=== PATIENT | male | born 1945 | race Caucasian/White ===

== ENCOUNTER 2018-07-01 01:11 | Outpatient (CLI) | payer MEDICARE, OTHER, SELFPAY ==
--- NOTE | 2018-07-01 13:30 | MERGE_ITS ---
*[facility]* *[facility]* [address] [place] [address] Date of study: 07/01/2018 Transthoracic Echocardiography M-mode, complete 2D, complete spectral Doppler, and color Doppler *STUDY CONCLUSIONS* Summary: 1. Left ventricle: The cavity size was normal. Wall thickness was increased in a pattern of mild LVH. Systolic function was hyperdynamic. The estimated ejection fraction was 65-70%. There was very mild dynamic obstruction at rest in the outflow tract, withpeak gradient of 7.8mm Hg; no change with Valsalva. Wall motion was normal; there were no regional wall motion abnormalities. 2. Aortic valve: Trileaflet; normal thickness leaflets. 3. Ascending aorta: The ascending aorta was mildly to moderately dilated. 4. Aorta: Ascending aortic diameter: 4.1cm (S). 5. Right ventricle: The cavity size was normal. Wall thickness was normal. Systolic function was normal. *PATIENT PRESENTATION* Height: 177.8cm ((70in) ) S/D Pressure: 141 / 82 Weight: 117.9kg ((259.5lb) ) BSA: 2.46m^2 Test start time: 01:50 PM. Test stop time: 02:45 PM. PERFORMING Unknown PERFORMING [facility] ORDERING Vernon Culver REFERRING Vernon Culver [employer] Aparna Katz, RT (R)(CT), [facility] *PROCEDURE DATA* Procedure information: The patient was identified by two identifiers. This study was interpreted by [facility]. Pertinent images and digital data are archived for permanent storage and are available for subsequent review. No prior study was available for comparison. Study status: Routine. Transthoracic echocardiography. M-mode, complete 2D, complete spectral Doppler, and color Doppler. A Transthoracic Echocardiogram was performed. Scanning was performed from the parasternal, apical, subcostal, and suprasternal notch acoustic windows. Images were obtained using an [id number]. cardiac ultrasound machine. Image quality was fair. Study completion: The patient tolerated the procedure well. There were no complications. History: PMH: Bilateral leg edema, SOB, JEISON. *CARDIAC ANATOMY* Left ventricle: The cavity size was normal. Wall thickness was increased in a pattern of mild LVH. Systolic function was hyperdynamic. The estimated ejection fraction was 65-70%. There was very mild dynamic obstruction at rest in the outflow tract, withpeak gradient of 7.8mm Hg; no change with Valsalva. Wall motion was normal; there were no regional wall motion abnormalities. Diastolic parameters were normal for age. Aortic valve: Trileaflet; normal thickness leaflets. Mobility was not restricted. Doppler: Transvalvular velocity was within the normal range. There was no stenosis. There was no significant regurgitation. VTI ratio of LVOT to aortic valve: 0.68. Valve area (VTI): 2.4cm^2. Indexed valve area (VTI): 1cm^2/m^2. Peak velocity ratio of LVOT to aortic valve: 0.62. Valve area (Vmax): 2.3cm^2. Indexed valve area (Vmax): 0.9cm^2/m^2. Mean velocity ratio of LVOT to aortic valve: 0.71. Valve area (Vmean): 2.6cm^2. Indexed valve area (Vmean): 1cm^2/m^2. Mean gradient (S): 8.4mm Hg. Peak gradient (S): 15.9mm Hg. Aorta: Aortic root: The aortic root was at upper normal limits. Ascending aorta: The ascending aorta was mildly to moderately dilated. Mitral valve: Structurally normal valve. Mobility was not restricted. Doppler: Transvalvular velocity was within the normal range. There was no evidence for stenosis. There was trivial regurgitation. Valve area by pressure half-time: 3.2cm^2. Indexed valve area by pressure half-time: 1.3cm^2/m^2. Peak gradient (D): 2mm Hg. Left atrium: The atrium was normal in size. Right ventricle: The cavity size was normal. Wall thickness was normal. Systolic function was normal. Pulmonic valve: Structurally normal valve. Doppler: Transvalvular velocity was within the normal range. There was no evidence for stenosis. There was no significant regurgitation. Peak gradient (S): 6.9mm Hg. Tricuspid valve: Structurally normal valve. Doppler: Transvalvular velocity was within the normal range. There was no evidence for stenosis. There was trivial regurgitation. Pulmonary artery: Systolic pressure could not be accurately estimated. Right atrium: The atrium was normal in size. Pericardium: There was no pericardial effusion. Systemic veins: Inferior vena cava: Well visualized. The vessel was patent and normal in size. The respirophasic diameter changes were in the normal range (greater than or equal to 50%). Baseline ECG: Bradycardia. Measurements Left ventricle Value Reference LV ID, ED, PLAX 5.5 cm 3.5 - 6.0 LV ID, ES, PLAX 3.4 cm 2.1 - 4.0 LV PW thickness, ED, PLAX 1.4 cm LV end-diastolic volume, 1-p A2C 103 ml LV ejection fraction, 1-p A2C 70 % LV end-diastolic volume, 1-p A4C 144 ml LV ejection fraction, 1-p A4C 78 % LV e', lateral 0.073 m/sec LV E/e', lateral 10 LV e', medial 0.061 m/sec LV E/e', medial 12 LV e', average 0.067 m/sec LV E/e', average 11 Ventricular septum Value Reference IVS thickness, ED, PLAX 1.3 cm LVOT Value Reference LVOT ID, A-P 2.1 cm LVOT area 3.6 cm^2 LVOT peak velocity, S 1.24 m/sec LVOT mean velocity, S 0.97 m/sec LVOT VTI, S 29.1 cm LVOT peak gradient, S 6.1 mm Hg LVOT mean gradient, S 4.1 mm Hg Stroke volume (SV), LVOT DP 105 ml Stroke index (SV/bsa), LVOT DP 43 ml/m^2 Aortic valve Value Reference Aortic valve peak velocity, S 2 m/sec Aortic valve mean velocity, S 1.37 m/sec Aortic valve VTI, S 43.0 cm Aortic mean gradient, S 8.4 mm Hg Aortic peak gradient, S 15.9 mm Hg VTI ratio, LVOT/AV 0.68 Aortic valve area, VTI 2.4 cm^2 Velocity ratio, peak, LVOT/AV 0.62 Aortic valve area, peak velocity 2.3 cm^2 Velocity ratio, mean, LVOT/AV 0.71 Aortic valve area, mean velocity 2.6 cm^2 Aortic valve area/bsa, mean velocity 1 cm^2/m^2 Aorta Value Reference Aortic root ID, ED 3.7 cm Ascending aorta ID, A-P, S 4.1 cm RVOT Value Reference RVOT VTI, S 19.3 cm Left atrium Value Reference LA ID, A-P, ES 3.4 cm LA ID/bsa, A-P 1.4 cm/m^2 <=2.2 LA area, ES, A4C 22.8 cm^2 8.8 - 23.4 LA area, ES, A2C 20 cm^2 LA volume/bsa, ES, 1-p A4C 32 ml/m^2 LA volume, ES, 2-p 60 ml LA volume/bsa, ES, 2-p 24 ml/m^2 LA/aortic root ratio 0.9 Mitral valve Value Reference Mitral E-wave peak velocity 0.72 m/sec Mitral A-wave peak velocity 0.8 m/sec Mitral deceleration time (H) 235 ms 150 - 230 Mitral pressure half-time 68 ms Mitral peak gradient, D 2 mm Hg Mitral E/A ratio, peak 0.89 Mitral valve area, PHT, DP 3.2 cm^2 Tricuspid valve Value Reference Tricuspid regurg peak velocity 3 m/sec Tricuspid peak RV-RA gradient 35.6 mm Hg Right atrium Value Reference RA area, ES, A4C 17.4 cm^2 8.3 - 19.5 Pulmonic valve Value Reference Pulmonic peak gradient, S 6.9 mm Hg Legend: (L) and (H) miguelangel values outside specified reference range. I have personally reviewed the images and have reviewed and edited the reported findings. Electronically signed by Yuval Ferreira 07/02/2018 07:37
== END 2018-07-01 01:31 ==
PROVIDERS: PCP Specialist/Technologist Athletic Trainer; Visit Provider Specialist/Technologist Athletic Trainer
DX: R06.02 Shortness of breath (principal); R60.0 Localized edema; I51.7 Cardiomegaly; G47.33 Obstructive sleep apnea (adult) (pediatric)
CPT/HCPCS: 93306

== ENCOUNTER 2018-08-10 12:48 | Outpatient (REF) | payer MEDICARE, SELFPAY ==
[2018-08-10 22:12] LABS: Abs Immature Grans 0.02 k/cumm (0.0-0.09); Absolute Basophil Count 0.03 k/cumm (0.0-0.2); Absolute Eosinophil Count 0.29 k/cumm (0.0-0.7); Absolute Lymphocyte Count 1.47 k/cumm (1.2-3.4); Absolute Monocyte Count 0.63 k/cumm (0.11-0.7); Basophils % 0.5; Eosinophils % 4.6; HCT 41.7 % (40.0-50.0); HGB 13.7 g/dL (13.5-17.5); Immature Grans % 0.3; Lymphocytes % 23.2; Mean Corp. HGB Concentration 32.9 g/dL (32.0-36.0); Mean Corpuscular Hemoglobin 30.1 pg (27.0-33.0); Mean Corpuscular Volume 91.6 fL (80-95); Mean Platelet Volume 11.4 fL (8.0-11.0); Monocytes % 9.9; Neutrophils % 61.5; Platelet Count 202 x1000/uL (130-400); RBC 4.55 m/cumm (4.50-6.00); RBC Distribution Width 13.8 % (11.8-14.1); White Blood Cell Count 6.34 k/cumm (4.4-10.8)
[2018-08-10 22:57] LABS: BUN 19 mg/dL (7-18); Calcium 9.5 mg/dL (8.5-10.1); Chloride 105 mmol/L (98-107); Cholesterol 139 mg/dL (50-200); Estimated GFR 54.11 (mL/min/1.73m2); Glucose 90 mg/dL (70-100); HDL Cholesterol 36 mg/dL (40-60); LDL CHOLESTEROL 92 mg/dL (<100); Potassium 4.5 mmol/L (3.5-5.1); Sodium 140 mmol/L (136-145); Triglyceride 86 mg/dL (30-150)
== END 2018-08-10 13:08 ==
LOC: NCHCN 12:48
PROVIDERS: PCP Specialist/Technologist Athletic Trainer; Visit Provider Specialist/Technologist Athletic Trainer
DX: R73.03 Prediabetes (principal); I10 Essential (primary) hypertension
CPT/HCPCS: 80048; 80061; 83721; 85025

== ENCOUNTER 2019-03-01 12:23 | Outpatient (REF) | payer MEDICARE, SELFPAY ==
[2019-03-01 21:24] LABS: Anion Gap 11.1 mmol/L (3-11); BUN 18 mg/dL (7-18); CO2 25.9 mmol/L (21.0-32.0); CREATININE 1.16 mg/dL (0.70-1.30); Chloride 105 mmol/L (98-107); Glucose 100 mg/dL (70-100); Potassium 4.3 mmol/L (3.5-5.1); Sodium 142 mmol/L (136-145)
== END 2019-03-01 12:43 ==
LOC: NCHCN 12:23
PROVIDERS: PCP Specialist/Technologist Athletic Trainer; Visit Provider Specialist/Technologist Athletic Trainer
DX: I10 Essential (primary) hypertension (principal)
CPT/HCPCS: 80048

== ENCOUNTER 2019-07-03 01:28 | Emergency (ER) | payer MEDICARE, OTHER, SELFPAY ==
[2019-07-03] VITALS (36 sets, daily range): BP systolic 122–175; BP diastolic 74–94; PULSE 55–76; RESP 15–28; TEMP 36.3; O2SAT 87–98
[2019-07-03] MEDS: Normal Saline 1,000 ML 1000 ML IV ×2 (01:30→03:55)
--- NOTE | 2019-07-03 01:55 | W.ED.GENAD ---
Discharge Plan Disposition Patient Disposition: HOME Condition: Good Discharge Details Chief Complaint: FlankPain Clinical Impression: Acute left flank pain, Acute dehydration Primary Care Provider: Vernon Culver ED Provider: Jose Hawk Home Meds and New Rx's Prescriptions: No Action triamcinolone acetonide 80 GM ointment 0 Topical DAILY Qty: 80 RF: 3 hydrocortisone 30 GM cream with perineal applicator 0 RC BID Qty: 30 RF: 3 albuterol sulfate [ProAir HFA] 8.5 GM HFA aerosol inhaler 2 puff Inhalation Q6H PRN Qty: 1 RF: 4 magnesium oxide 500 MG capsule 500 mg PO DAILY RF: 0 Discharge Instructions Instructions: Dehydration (ED), Flank Pain (ED) Additional Instructions: At this time the imaging studies and her work-up show no evidence of significant cardiac abnormality, or abdominal abnormality. You are slightly dehydrated. We recommend continue fluid intake at home, at least 10 to 12 cups of water per day for the next few days. Please take Tylenol and Motrin as needed for pain. If you notice any worsening of your symptoms, or any new symptoms such as vomiting, diarrhea, fever, chills, shortness of breath, chest pain, numbness, weakness, or fainting , please return immediately to the emergency department for reevaluation. Please follow up with your primary care provider as soon as possible for reassessment and reevaluation. As always, it was a pleasure participating in your medical care today. Referrals: Vernon Culver [Primary Care Provider] - Medical Decision Making This is a pleasant 74-year-old male with no significant past medical history who presents today for evaluation of left-sided flank pain that began a few hours ago. Does not appear to be exertional, no radiation to the back or groin. He denies any urinary symptoms. He denies any nausea vomiting or diarrhea. He denies any chest pain or shortness of breath chest heaviness or chest tightness. He denies any previous episodes like this. Physical exam demonstrates stable vital signs, no significant reproducible abdominal pain on exam. Signs and symptoms are atypical, but differential includes atypical cardiac etiology, kidney stone, UTI or pyelonephritis. We will treat the patient's pain, get a CT scan of the abdomen, evaluate for cardiac etiology and reassess. 3:54 AM Patient's laboratory work-up is returned relatively benign, no white count, no left shift, electrolytes normal, creatinine and GFR are near baseline. Initial troponin negative, CT scan of the abdomen and pelvis demonstrates evidence of a small fat-containing left inguinal hernia, but no evidence of kidney stone, or other abnormality. CT scan per virtual radiology of the chest demonstrates no evidence of pulmonary embolism or acute process. Patient's pain is improved with narcotics but not resolved. I am uncertain as to the exact etiology of his symptoms but there appears to be no evidence of an acute life-threatening process. Especially in conjunction with notably unremarkable laboratory imaging work-up. We are still pending serial troponins. We are pending urinalysis. 5:12 AM Patient's delta troponin and repeat EKG are unremarkable and unchanged. Patient's pain is notably improved at this time. He still has a mild aching in his left lower ribs/left upper quadrant area. CT scan of the abdomen and CT angios of the chest is negative for significant acute process. He does have a left inguinal hernia, however multiple reassessments of this area including palpation demonstrate no evidence of tenderness, or pain whatsoever. No significant bulge. It appears completely reducible. The patient is also very clear that this is not the location of his pain whatsoever. I doubt that this is referred pain either. With a notably unremarkable laboratory work-up, negative serial troponins, negative imaging studies, I am uncertain as to the exact etiology of his pain. Urinalysis is negative for any evidence of infection or blood. It appears that at this time there is no clinical evidence of an acute surgical abdomen, or life-threatening etiology in the abdomen or chest at this time. With notable improvement of his pain in the otherwise benign work-up I did discuss with the patient potential further observation versus discharge and at this time patient states that he feels well and would like to go home. There may be a component of a sprain, muscle spasm.. However the patient signs and symptoms at this time are clinically inconsistent with ACS, massive PE, dissection, AAA, acute surgical abdominal pathology, life-threatening infection. We discussed red flags which to return, symptomatology for which would merit prompt reassessment, as well as the importance of close follow-up with his primary care provider. I have extensively reviewed the treatment plan and discharge instructions with the patient and their family. I have addressed all patient concerns at this time. The patient and family was made aware of what symptoms to monitor for that would warrant a return to the emergency department. Discussed the plan with the patient and family, they demonstrate verbal understanding and agreement with our assessment and plan at this time. EKG 1: 34 Rate 76, intervals normal, sinus rhythm, nonspecific less than [address] depression in V3 and V4. No significant T wave inversions, there is some atypical artifact noted in the prolonged lead II, however appears to be normal sinus rhythm throughout otherwise. No significant Q waves. No evidence of STEMI. Review of EKG from 04/23/[address] changes. 5:08 AM Rate 59, NJ 210, QTc 422, sinus bradycardia, no significant ST elevations or depressions, no significant T wave inversions, no evidence of STEMI. Nonspecific less than 1 mm depression in V4. Unchanged from prior EKGs from ton and 2015. FINDINGS: Lungs: Unremarkable. No consolidation. Pleural space: Unremarkable. No evidence of pneumothorax. Heart/Mediastinum: Unremarkable. Heart size within normal limits for technique. Bones/joints: Unremarkable. IMPRESSION: No acute findings. Thank you for allowing us to participate in the care of your patient. Dictated and Authenticated by: Terrell Purcell MD 07/03/2019 2:12 AM Eastern Time ([place] & [place]) FINDINGS: Pulmonary arteries: Unremarkable. No evidence of pulmonary emboli. Aorta: Unremarkable. No aortic aneurysm. No aortic dissection. Lungs: Small amount of dependent atelectasis. Pleural space: Unremarkable. No pneumothorax. No pleural effusion. Heart: Unremarkable. No pericardial effusion. No obvious heart strain. Lymph nodes: Unremarkable. No enlarged lymph nodes. Bones/joints: Unremarkable. No acute fracture. Soft tissues: Unremarkable. IMPRESSION: Small amount of dependent atelectasis. Thank you for allowing us to participate in the care of your patient. FINDINGS: Liver: No suspicious lesions. Gallbladder and bile ducts: Cholecystectomy. Pancreas: Unremarkable. Spleen: No suspicious lesions. Adrenals: No suspicious nodule. Kidneys and ureters: No hydro. No suspicious lesions. Stomach and bowel: No inflammed or dilated loops. Appendix: No evidence of appendicitis. Intraperitoneal space: No free air. No significant fluid collection. Vasculature: Unremarkable. Lymph nodes: Unremarkable. Bladder: Unremarkable as visualized. Reproductive: Unremarkable as visualized. Bones/joints: Unremarkable. No acute fracture. Soft tissues: Small fat-containing left inguinal hernia. IMPRESSION: Small fat-containing left inguinal hernia. Thank you for allowing us to participate in the care of your patient. Dictated and Authenticated by: Terrell Purcell MD 07/03/2019 2:50 AM Eastern Time ([place] & [place]) HPI General Date/Time Provider Initiated Documentation: 07/03/19 01:30. HPI Narrative: This is a 74-year-old male with a past medical history of reactive airway disease no other significant medical problems who presents today for evaluation of left flank pain. Patient states that he had an episode of this flank pain roughly 3 to 4 days ago, it came and went on its own. However this evening and again came on on its own, once on the left flank, he describes it as a sharp aching sensation, he does have some splinting when he breathes secondary to this. But he denies any chest pain, shortness of breath, pleuritic chest pain. He denies any radiation to his back or his groin. He denies any dysuria or hematuria. He denies any nausea vomiting or diarrhea. He denies ever having symptoms like this before. He denies any cardiac history, or history of kidney stones. He denies any other modifying factors. No other complaints at this time. Related Data Home Medications Medication Instructions Recorded Confirmed magnesium oxide 500 mg PO DAILY 04/23/16 07/03/19 triamcinolone acetonide 0 TOPICAL DAILY #80 g 08/22/17 hydrocortisone 0 RC BID #30 g 08/29/17 albuterol sulfate [Proair Hfa] 2 puff INHALATION Q6H PRN #1 09/11/17 07/03/19 inhaler Previous Rx's Medication Instructions Recorded albuterol sulfate [Proair Hfa] 2 puff INHALATION Q6H PRN #1 09/11/17 inhaler Allergies Allergy/AdvReac Type Severity Reaction Status Date / Time Blood pressure meds AdvReac wiped me Uncoded 07/03/19 01:40 out General Stated Complaint: FlankPain KALI: 2 Review of Systems All systems reviewed & are unremarkable except as noted in HPI and below [facility] Surgical History (Updated 06/24/18 @ 14:34 by Lanx [place]) Appendectomy Cholecystectomy Hemorrhoidectomy Replacement of total knee joint RIGHT-2005 LEFT-? Rotator Cuff Repair (07/07/13) Transurethral prostatectomy 2014 Family History Mother Diabetes Father Neoplasm THROAT Brother No problems noted. Grandfather No problems noted. Grandfather No problems noted. Grandmother No problems noted. Grandmother No problems noted. Brother No problems noted. Daughter No problems noted. Daughter No problems noted. Social History Smoking/Tobacco Use Status: Never Drug use: Never Exam Narrative Exam Narrative: 1.Const: Well-nourished, Well-developed, appearing stated age 2.Eyes: PERRL, no conjunctival injection, and symmetrical lids. 3.ENT: Atraumatic external nose and ears. Moist MM. Neck: Symmetric, trachea midline, No thyromegaly. 4.CVS: +S1/S2, No murmurs or gallops. Peripheral pulses 2+ and equal in all extremities. Brisk capillary refill in all extremities. 5.RESP: Unlabored respiratory effort. Clear to auscultation bilaterally. No wheezes rales or rhonchi 6.GI: Soft, Nontender/Nondistended, No hepatosplenomegaly. No guarding or rebound. No CVA tenderness, no reproducible abdominal tenderness on exam. General exam demonstrates nontender genitals, nontender testicles. No penile tenderness. 7.MSK: Normocephalic/Atraumatic, Extremities w/o deformity or ttp No cyanosis or clubbing, Normal movement of all extremities 8.Skin: Warm, Dry. No rashes or lesions. 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 Sensation grossly intact, no focal neurologic deficits. 10.Psych: (AAO) x3. Appropriate mood and affect Course Vital Signs Vital signs: Vital Signs Temperature 36.3 C L 07/03/19 01:33 Pulse 73 07/03/19 01:33 Respiratory Rate 24 07/03/19 01:33 Blood Pressure 175/94 H 07/03/19 01:33 Pulse Oximetry 98 07/03/19 01:33 Temperature 36.3 C L 07/03/19 01:33 Temperature Source Tympanic 07/03/19 01:33 Pulse 73 07/03/19 01:33 Respiratory Rate 24 07/03/19 01:33 Respiratory Effort Short of Breath 07/03/19 01:45 Blood Pressure 175/94 H 07/03/19 01:33 Blood Pressure Position Supine 07/03/19 01:33 Pulse Oximetry 98 07/03/19 01:33 Oxygen Delivery Method Room Air 07/03/19 01:33 Oxygen Flow Rate 0 07/03/19 01:33 Pain Level 3 07/03/19 01:47
[2019-07-03 01:58] LABS: BE (Venous) 1.7 mmol/L (-3-3); HCO3 (Venous) 26 mmol/L (22-28); O2 Sat (Venous) 75 % (70-80); TCO2 (Venous) 24 mmol/L (22-29); pCO2 (Venous) 41 mm/Hg (34-47); pH (Venous) 7.41 (7.32-7.43); pO2 (Venous) 41 mm/Hg (28-44)
--- NOTE | 2019-07-03 02:00 | DI.RAD_ITS ---
EXAM: XR PORTABLE CHEST AP INDICATION: sob, right CP. COMPARISON: CHEST 2 VIEWS PA,LAT from 04/23/2016 TECHNIQUE: 2D digital imaging was performed. FINDINGS: Heart size and pulmonary vasculature are within normal limits. The lungs are clear. No effusion or pneumothorax is identified. Age-appropriate degenerative changes are seen in the spine. IMPRESSION: No acute pulmonary process.
[2019-07-03 02:02] LABS: Abs Immature Grans 0.01 k/cumm (0.0-0.09); Absolute Basophil Count 0.04 k/cumm (0.0-0.2); Absolute Eosinophil Count 0.39 k/cumm (0.0-0.7); Absolute Lymphocyte Count 2.46 k/cumm (1.2-3.4); Absolute Monocyte Count 0.72 k/cumm (0.11-0.7); Absolute Neutrophil Count 3.07 k/cumm (1.2-6.7); Basophils % 0.6; Eosinophils % 5.8; HCT 40.1 % (40.0-50.0); HGB 13.5 g/dL (13.5-17.5); Immature Grans % 0.1; Lymphocytes % 36.8; Mean Corp. HGB Concentration 33.7 g/dL (32.0-36.0); Mean Corpuscular Hemoglobin 30.9 pg (27.0-33.0); Mean Corpuscular Volume 91.8 fL (80-95); Mean Platelet Volume 10.3 fL (8.0-11.0); Monocytes % 10.8; Neutrophils % 45.9; Platelet Count 240 x1000/uL (130-400); RBC 4.37 m/cumm (4.50-6.00); RBC Distribution Width 13.1 % (11.8-14.1); White Blood Cell Count 6.69 k/cumm (4.4-10.8)
--- NOTE | 2019-07-03 02:06 | DI.CT_ITS ---
EXAM: CT ABDOMEN PELVIS WO CLINICAL HISTORY: left flank pain, r/o stone TECHNIQUE: The exam was performed according to the usual protocol without contrast. COMPARISON: CHEST FOR PULMONARY EMBOLUS from 04/23/2016 FINDINGS: The lack of IV contrast does limit evaluation of the abdominal pelvic organs. Dependent atelectatic changes are seen in the lung bases. The unenhanced liver, spleen, pancreas, bile ducts, and adrenal glands are unremarkable. The patient is status post cholecystectomy. There is no evidence of nephro lithiasis, ureterolithiasis or obstructive uropathy. The urinary bladder is intact. The prostate gl and appears mildly enlarged. The bowel shows no evidence of obstruction or inflammation. No evidenc e of an acute appendicitis are present. Note is made of a fat containing left inguinal hernia. The abdominal aorta is of normal caliber. No aneurysmal dilatation is present. No significant abdominal or pelvic adenopathy, ascites, or pneumoperitoneum is present. There is L5 spondylolysis. There is grade 1 spondylolisthesis of L5 on S1. Multilevel degenerative changes are present throughout the l umbar spine. IMPRESSION: 1. No evidence of nephrolithiasis or obstructive uropathy. 2. No evidence of an acute abdomen.
[2019-07-03 02:11] LABS: INR 1.1 (0.9-1.1); PTT Activated 27.1 sec (21.0-31.4); Prothrombin Time 10.9 sec (9.3-11.0)
--- NOTE | 2019-07-03 02:13 | DI.VRAD_ITS ---
PROCEDURE INFORMATION: Exam: XR Chest, 1 View Exam date and time: 07/03/2019 1:55 AM Clinical history: 74 years old, male; Right-sided chest pain; Patient HX: SOB, RT sided cp TECHNIQUE: Imaging protocol: XR of the chest Views: 1 view. COMPARISON: CR CHEST 2 VIEWS PA,LAT 04/23/2016 12:30 PM FINDINGS: Lungs: Unremarkable. No consolidation. Pleural space: Unremarkable. No evidence of pneumothorax. Heart/Mediastinum: Unremarkable. Heart size within normal limits for technique. Bones/joints: Unremarkable. IMPRESSION: No acute findings. Dictated and Authenticated by: Terrell Purcell MD. Ordering:RL Garcia MD
[2019-07-03 02:17] LABS: ALT 76 U/L (16-63); AST 42 U/L (15-37); Albumin 3.8 g/dL (3.4-5.0); Alkaline Phosphatase 81 U/L (46-116); Anion Gap 10.8 mmol/L (3-11); BUN 25 mg/dL (7-18); Bilirubin, Total 0.8 mg/dL (0.2-1.0); CO2 25.2 mmol/L (21.0-32.0); Calcium 9.1 mg/dL (8.5-10.1); Chloride 105 mmol/L (98-107); Estimated GFR 45.75 (mL/min/1.73m2); Glucose 113 mg/dL (70-100); Potassium 3.7 mmol/L (3.5-5.1); Sodium 141 mmol/L (136-145); Troponin I < 0.05 ng/mL (0.00-0.06)
[2019-07-03] MEDS: HYDROmorphone 2 MG/ML VIAL 1 MG IVP (02:45)
--- NOTE | 2019-07-03 02:50 | DI.VRAD_ITS ---
PROCEDURE INFORMATION: Exam: CT Abdomen And Pelvis Without Contrast Exam date and time: 07/03/2019 2:02 AM Clinical history: 74 years old, male; Abdominal pain; Flank; Left TECHNIQUE: Imaging protocol: Computed tomography of the abdomen and pelvis without contrast. Radiation optimization: All CT scans at this facility use at least one of these dose optimization techniques: automated exposure control; mA and/or kV adjustment per patient size (includes targeted exams where dose is matched to clinical indication); or iterative reconstruction. COMPARISON: No relevant prior studies available. FINDINGS: Liver: No suspicious lesions. Gallbladder and bile ducts: Cholecystectomy. Pancreas: Unremarkable. Spleen: No suspicious lesions. Adrenals: No suspicious nodule. Kidneys and ureters: No hydro. No suspicious lesions. Stomach and bowel: No inflammed or dilated loops. Appendix: No evidence of appendicitis. Intraperitoneal space: No free air. No significant fluid collection. Vasculature: Unremarkable. Lymph nodes: Unremarkable. Bladder: Unremarkable as visualized. Reproductive: Unremarkable as visualized. Bones/joints: Unremarkable. No acute fracture. Soft tissues: Small fat-containing left inguinal hernia. IMPRESSION: Small fat-containing left inguinal hernia. Dictated and Authenticated by: Terrell Purcell MD. Ordering:RL Garcia MD
[2019-07-03] MEDS: Omnipaque 350 MG/ML 100 ML BTL IJ (03:40)
--- NOTE | 2019-07-03 03:41 | DI.CT_ITS ---
EXAM: CT CHEST PE CTA CLINICAL HISTORY: left chest pain vs flank pain TECHNIQUE: Axial CT angiography was performed with multi-slice acquisition and multi-planar and/or 3 D reconstructions. The exam was performed utilizing 100 cc's of Omnipaque 350. COMPARISON: CT ABDOMEN PELVIS WO from 07/03/2019 FINDINGS: There is no evidence of a pulmonary embolus. The thoracic aorta is intact. No evidence of thoracic aortic dissection or aneurysm. Heart size is within normal limits. No pericardial effusion or evide nce of right heart strain is present. No significant thoracic adenopathy, effusion, or pneumothorax is identified. Dependent atelectatic changes are seen in the lungs. No focal consolidating infiltra kateryna are seen. The tracheobronchial tree is unremarkable. Degenerative changes are seen in the spine . IMPRESSION: No evidence of a pulmonary embolus, thoracic aortic dissection, or aneurysm.
--- NOTE | 2019-07-03 03:53 | DI.VRAD_ITS ---
PROCEDURE INFORMATION: Exam: CT Angiography Chest With Contrast Exam date and time: 07/03/2019 3:09 AM Clinical history: 74 years old, male; Left-sided chest pain TECHNIQUE: Imaging protocol: Computed tomographic angiography of the chest with intravenous contrast. 3D rendering: MIP reconstructed images were created and reviewed. Radiation optimization: All CT scans at this facility use at least one of these dose optimization techniques: automated exposure control; mA and/or kV adjustment per patient size (includes targeted exams where dose is matched to clinical indication); or iterative reconstruction. Contrast material: [id number]; Contrast volume: 100 ml; Contrast route: IV RAC 18G; COMPARISON: CT CHEST FOR PULMONARY EMBOLUS 04/23/2016 1:11 PM FINDINGS: Pulmonary arteries: Unremarkable. No evidence of pulmonary emboli. Aorta: Unremarkable. No aortic aneurysm. No aortic dissection. Lungs: Small amount of dependent atelectasis. Pleural space: Unremarkable. No pneumothorax. No pleural effusion. Heart: Unremarkable. No pericardial effusion. No obvious heart strain. Lymph nodes: Unremarkable. No enlarged lymph nodes. Bones/joints: Unremarkable. No acute fracture. Soft tissues: Unremarkable. IMPRESSION: Small amount of dependent atelectasis. Dictated and Authenticated by: Terrell Purcell MD. Ordering:RL Garcia MD
[2019-07-03 04:54] LABS: Troponin I < 0.05 ng/mL (0.00-0.06)
[2019-07-03 05:09] LABS: Bilirubin Negative (Negative); Blood Negative (Negative); Clarity Clear (Clear); Glucose Negative (Negative); Ketones Negative (Negative); Leukocyte Esterase Negative (Negative); Nitrite Negative (Negative); pH 6.5 (5-8)
[2019-07-03] MEDS: Lidocaine 5% Patch 1 PATCH TP (05:30)
== END 2019-07-03 05:40 | disposition home or self-care (01) ==
PROVIDERS: Emergency Provider Student in an Organized Health Care Education/Training Program; PCP Specialist/Technologist Athletic Trainer
DX: R10.9 Unspecified abdominal pain (principal); E86.0 Dehydration
CPT/HCPCS: 36415; 71275; 80053; 82805; 93005; 96361; 96374; 96375; 99285; 71045; 74176; 81003; 84484; 85025; 85610; 85730; 93010; J3490

== ENCOUNTER 2019-08-30 10:23 | Outpatient (REF) | payer MEDICARE, OTHER, SELFPAY ==
[2019-08-30 21:24] LABS: HCT 40.6 % (40.0-50.0); HGB 13.5 g/dL (13.5-17.5)
[2019-08-30 21:55] LABS: Anion Gap 8.7 mmol/L (3-11); BUN 18 mg/dL (7-18); CO2 25.3 mmol/L (21.0-32.0); CREATININE 1.23 mg/dL (0.70-1.30); Calcium 9.2 mg/dL (8.5-10.1); Chloride 105 mmol/L (98-107); Estimated GFR 57.52 (mL/min/1.73m2); Glucose 100 mg/dL (74-106); Potassium 4.3 mmol/L (3.5-5.1); Sodium 139 mmol/L (136-145)
== END 2019-08-30 10:43 ==
LOC: NCHCN 10:23
PROVIDERS: PCP Specialist/Technologist Athletic Trainer; Visit Provider Specialist/Technologist Athletic Trainer
DX: I10 Essential (primary) hypertension (principal)
CPT/HCPCS: 80048; 85014; 85018

== ENCOUNTER → 2020-03-17 09:48 | Outpatient (BNVA) | payer MEDICARE, OTHER, SELFPAY | PROVIDERS: PCP Specialist/Technologist Athletic Trainer; Referring Provider Specialist/Technologist Athletic Trainer; Visit Provider Surgery | DX: R13.19 Other dysphagia (principal); Z86.010 Personal history of colon polyps; Z12.11 Encounter for screening for malignant neoplasm of colon; I10 Essential (primary) hypertension | CPT/HCPCS: 99202; 99213 ==

== ENCOUNTER 2020-03-25 07:06 | Outpatient (CLI) | payer MEDICARE, OTHER, SELFPAY ==
[2020-03-27 07:53] LABS: COVID-19 RT-PCR Result NEGATIVE (Negative)
== END 2020-03-25 07:26 ==
PROVIDERS: PCP Specialist/Technologist Athletic Trainer; Visit Provider Surgery
DX: Z01.818 Encounter for other preprocedural examination (principal)
CPT/HCPCS: U0003

== ENCOUNTER 2020-03-29 08:01 | Day surgery (SDC) | payer MEDICARE, OTHER, SELFPAY ==
--- NOTE | 2020-03-29 05:55 | W.PM.ENDDOP ---
Date of service: 03/29/20 Time of Service: 11:06 Endoscopy Report DATE OF PROCEDURE: 03/29/20 PRE-OP DIAGNOSIS: Dysphagia, hx of colon polyps POST-OP DIAGNOSIS: other (Gastritis, esophagitis, Schatzki's ring, multiple colon polyps and internal hemorrhoids) PROCEDURE: 1. EGD with biopsies 2. Colonoscopy with polypectomy SURGEON: Melania Landaverde ANESTHESIA: other (General/ ASA 3/ Louie Gtz, [employer]) ESTIMATED BLOOD LOSS: 5 PATHOLOGY: other (pylorus bx, body of stomach bx, ge junction bx, cecal polyp, ascending polyp, descending polyps x2, rectal polyp) COMPLICATIONS: None DISPOSITION: same day INDICATIONS: Mr. Caro is a pleasant 75 year old male here today to discuss an EGD for dysphagia. He tells me that he has had dysphagia for 3-4 years. He does feel that it has been getting worse. It is worse when he eats bread or if he eats very fast. He has to drink a lot of water to avoid food getting stuck. When he has the dysphagia he also has some pain. No N/V. Looking at his chart he is also due for a colonoscopy. His last colonoscopy was in 2014 and he was noted to have a tubular adenoma. He denies any changes in bowel habits, melena or hematochezia, unintentional weight loss or family history of colon cancer. He is open to having a colonoscopy at the same time as his EGD PREP: Miralax/Dulcolax PROCEDURE START TIME: 11:06 PROCEDURE END TIME: 12:15 COLONOSCOPY RETRACTION TIME: 25 minutes FINDINGS: Upper- mild gastritis and moderate esophagitis with a Schatzki's ring Lower- multiple polyps and internal hemorrhoids PROCEDURE DESCRIPTION: After informed consent was obtained the patient was take to the procedure room and placed in a supine position. Monitors were applied and a time out was done. The patients name, date of , procedure type, allergies to medications and metal in their body was reviewed. A bite block was placed and the patient was sedated. Once sedated and comfortable the gastroscope was advanced through the oropharynx which was grossly normal into the esophagus. The proximal and mid-esophagus were normal. In the distal esophagus there was moderate inflammation noted. The scope was advanced into the stomach and through the pylorus into the 3rd portion of the duodenum. The duodenum was noted to be normal. The scope was retracted back into the stomach. There was mild inflammation of the stomach. Biopsies were done to rule out H. pylori. There were no ulcers. The scope was retro-flexed. The cardia and fundus were noted to be normal. There was no hiatal hernia noted. The scope was retracted back into the esophagus and biopsies were done of the GE junction to rule out Jermoe's. The GE junction was at 42 cm. There was a Schatzki's ring noted. While the patient was still sedated they were placed in a left decubitous position. A rectal exam was done. External exam was normal. Internal exam revealed a normal sphincter tone and no palpable masses. The prostate felt smooth. The scope was then introduced and retro-flexed. Grade 1 internal hemorrhoids were identified. The scope was then advanced to the cecum with difficulty. The colon was very tortuous and redundant making it difficult to get the scope into the cecum. The patient had to be placed in a supine position. The ileocecal valve and appendiceal orifice were identified. The prep was adequate. The scope flipped out of the cecum and I had seen a polyp. It took 20 minutes to advance the scope back into the cecum to remove the cecal polyp with cold forceps. The scope was then slowly retracted over 25 minutes back into the rectum. Polyps were removed with cold forceps in the ascending colo, descending colon and rectum. One larger polyp was removed with hot snare in the descending colon. The scope was removed and the patient was woken up and taken back to Same day surgery in stable condition. The patient tolerated the procedure well and there were no immediate complications. Follow up: 3-5 years for the next colonoscopy if his health allows. 2 weeks in the office
--- NOTE | 2020-03-29 05:57 | W.PM.DSUDISC ---
Discharge Plan Disposition Patient Disposition: HOME Condition: Good Discharge Details Reason For Visit: DYSPHAGIA / HX OF POLYPS Attending Provider: Melania Landaverde Primary Care Provider: Jasmin Mckeon Home Meds and New Rx's Prescriptions: Continued albuterol sulfate [ProAir HFA] 90 mcg/actuation HFA aerosol inhaler 2 puff IH Q6H PRNRF: 0 clotrimazole-betamethasone 1-0.05 % cream 1 applic TP BID RF: 0 amlodipine 2.5 mg tablet 2.5 mg PO BID RF: 0 lisinopril 2.5 mg tablet 2.5 mg PO BID RF: 0 triamcinolone acetonide 80 GM ointment 0 applic Topical DAILY Qty: 80 RF: 3 hydrocortisone 30 GM cream with perineal applicator 0 applic RC BID Qty: 30 RF: 3 albuterol sulfate [ProAir HFA] 8.5 GM HFA aerosol inhaler 2 puff Inhalation Q6H PRN Qty: 1 RF: 4 magnesium oxide 500 MG capsule 500 mg PO DAILY RF: 0 Discontinued bisacodyl [Dulcolax (bisacodyl)] 5 mg tablet,delayed release (DR/EC) 5 mg PO ONCE Qty: 4 RF: 0 polyethylene glycol 3350 17 gram powder in packet 255 g PO DAILY Qty: 15 RF: 0 Discharge Instructions Instructions: Colorectal Polyps (DC), Diet for Stomach Ulcers and Gastritis (ED), Gastritis (ED), Esophagitis (DC) Additional Instructions: Findings:inflammation of the stomach and esophagus Scarring in the esophagus Multiple colon polyps Follow up: 2 weeks in the office Please call if you develop: fevers >101.5 Nausea or Vomiting Abdominal pain that is not transient DAY SURGERY UNIT POST ENDOSCOPY INSTRUCTIONS 1. Because there will be medication in your system for the next 24 hours, you may feel a little sleepy. Your coordination will be affected. Therefore: a. Do not drive or operate dangerous equipment for 24 hours. b. Do not drink alcohol beverages for 24 hours (not even beer). c. Plan to go home and rest for the day. 2. Generally there are no restrictions on your activity after a day or so has gone by, but you may feel a bit fatigued for a few days. 3 After you arrive home you may have a light meal and return to a normal diet as you can tolerate it without feeling sick to your stomach. 4. After surgery, you may feel pain or discomfort. This should be only transient, but if it persists please contact your doctor. 5. If there are any questions regarding the findings of your procedure, please feel free to contact your doctor. 6. If you are unable to contact your doctor with a problem, contact the hospital at [phone]. 7. Continue all your regular medications unless directed otherwise. I understand the above instructions and have no questions. Signature of Patient or Responsible Adult Escort Date/Time Name of Responsible Adult Escort Signature of Nurse Date/Time Referrals: Melania Landaverde MD [ [facility] STAFF PHYSICIAN] - Activity:: Activity as Tolerated Diet:: As Tolerated Discharge Orders Discharge Orders: Discharge Order (Routine); Ordered 03/29/20 Ordered By: Melania Landaverde
[2020-03-29 08:07] VITALS: BP 137/108; PULSE 65; RESP 18; TEMP 36.7; O2SAT 98
[2020-03-29] MEDS: Lactated Ringers 1,000 ML 80 ML IV (08:35)
--- NOTE | 2020-03-29 11:09 | BOWEL_PTH ---
PATIENT: Guy Caro LOC: [facility] U#:[id number] AGE/SX: 75/M ROOM: RE03/29/[address]: Melania Landaverde MD : 1945 BED: DIS: 03/29/2020 SPEC #: [id number] RECD: 03/29/20 12:45 STATUS: GRACIA RE #: [id number] LUCÍA: 03/29/20 11:[address]: Melania Landaverde DEPT: Surgical Specimen RECD BY: Liz Ward ENTERED: 03/29/20 12:48 SP TYPE: Bowel OTHR DR: Jasmin Mckeon Tissues: 1 - STOMACH BIOPSY 2 - STOMACH BIOPSY 3 - ESOPHAGUS BIOPSY 4 - BIOPSY BOWEL 5 - BIOPSY BOWEL 6 - BIOPSY BOWEL 7 - BIOPSY BOWEL 8 - BIOPSY BOWEL Procedures: GROSS AND MICRO LEVEL 4 Comments: [id number]
[2020-03-29 12:50] VITALS: BP 119/85; PULSE 58; RESP 16; TEMP 36; O2SAT 96
[2020-03-29 13:42] VITALS: BP 170/98; PULSE 60; RESP 16; TEMP 36; O2SAT 97
[2020-03-29 14:15] VITALS: BP 156/94; PULSE 62; RESP 20; TEMP 36.3; O2SAT 95
[2020-03-29 14:55] VITALS: BP 143/84; PULSE 65; RESP 20; TEMP 36.3; O2SAT 96
== END 2020-03-29 15:05 | disposition home or self-care (01) ==
PROVIDERS: PCP Physician Assistant Medical; Visit Provider Surgery
PROC: (CPT 45385; principal; 2020-03-29 10:00)
DX: R13.10 Dysphagia, unspecified (principal); Z12.11 Encounter for screening for malignant neoplasm of colon; Z86.010 Personal history of colon polyps; K29.50 Unspecified chronic gastritis without bleeding; K31.7 Polyp of stomach and duodenum; D12.0 Benign neoplasm of cecum; D12.2 Benign neoplasm of ascending colon; D12.4 Benign neoplasm of descending colon; K62.1 Rectal polyp; K20.9 Esophagitis, unspecified; K22.2 Esophageal obstruction; K64.0 First degree hemorrhoids; I10 Essential (primary) hypertension
CPT/HCPCS: 45385; 45380; 43239; 88305; J2001; J2704

== ENCOUNTER → 2020-04-11 14:27 | Outpatient (BNVA) | payer MEDICARE, OTHER, SELFPAY | PROVIDERS: PCP Physician Assistant Medical; Referring Provider Physician Assistant Medical; Visit Provider Surgery | DX: R13.19 Other dysphagia (principal); Z48.815 Encounter for surgical aftercare following surgery on the digestive system | CPT/HCPCS: 99212 ==

== ENCOUNTER 2020-08-09 22:27 | Outpatient (REF) | payer MEDICARE, OTHER, SELFPAY ==
[2020-08-09 22:13] LABS: HCT 42.3 % (40.0-50.0); HGB 13.9 g/dL (13.5-17.5); MCH 30.7 pg (27.0-33.0); MCHC 32.9 % (32.0-36.0); MCV 93.4 fL (80-95); MPV 11.3 fL (8.0-11.0); Platelet Count 204 10^3/uL (130-400); RBC 4.53 10^6/uL (4.36-5.78); RDW 13.4 % (11.8-14.1); RDW-SD 45.7 fL; WBC 4.95 10^3/uL (4.4-10.8)
[2020-08-09 22:40] LABS: Calculated LDL 84 mg/dL (<100); Cholesterol 133 mg/dL (<200); HDL Cholesterol 33 mg/dL (40-60); Triglyceride 80 mg/dL (<150)
[2020-08-09 23:27] LABS: Hemoglobin A1C 6.1 % (<5.7)
== END 2020-08-09 22:47 ==
LOC: NCHCN 22:27
PROVIDERS: PCP Physician Assistant Medical; Visit Provider Family Medicine
DX: Z00.00 Encounter for general adult medical examination without abnormal findings (principal); R73.03 Prediabetes; I10 Essential (primary) hypertension
CPT/HCPCS: 80061; 85027; 83036

== ENCOUNTER 2021-02-01 01:54 | Outpatient (CLI) | payer MEDICARE, OTHER, SELFPAY ==
--- NOTE | 2021-02-01 | DI.US_ITS ---
Exam(s) US AAA SCREENING EXAM: US AAA SCREENING CLINICAL HISTORY: SCREENING FOR AAA,AORTIC DILATATION,I77.819 TECHNIQUE: Ultrasound performed using standard protocol. COMPARISON: US Cardiac from 07/01/2018 FINDINGS: Ultrasound examination was performed utilizing limited protocol to evaluate for possible abdominal ao rtic aneurysm. Maximum proximal aortic diameter is 2.9 cm, mid aortic diameter is about 2.5 cm. Rig ht and left common iliac artery show normal diameter at 1.5 cm and 1.4 cm respectively. IMPRESSION: No evidence of abdominal aortic aneurysm. DATA REPOSITORY:
--- NOTE | 2021-02-01 | DI.CT_ITS ---
Exam(s) CT CHEST WO EXAM: CT CHEST WO CLINICAL HISTORY: F/U LUNG NODULE AND AORTIC DILATATION,R91.8,I77.819. TECHNIQUE: Multi planar reconstructions were performed. CONTRAST MATERIAL: None COMPARISON: CT CT CHEST PE CTA from 07/03/2019 FINDINGS: CHEST: Images are mildly degraded by respiratory motion artifact. LUNGS: The appearance of the basal segments of both lower lobes is significantly improved from appear ance on CT scan of 07/03/2019. Lung bases are presently clear. There are no obvious significant foc al findings in the right upper lobe.. In the right middle lobe there is a 4 x 4 millimeter noncalcif ied pleural-based density which is unchanged from the previous study. Also some mild pleural based i nfiltrate just posterior to this which also appears unchanged. There are no new right lung findings nor pleural effusion. In the opposite-left lung there are benign-appearing increased markings in the inferior lingular segm ent. No new significant focal findings in the left lower lobe including the superior segment. There are no pleural effusions on either side. No findings in the trachea and mainstem bronchi. MEDIASTINUM: There is no obvious hilar nor mediastinal adenopathy. Visualized thyroid unremarkable.No obvious axillary adenopathy CARDIAC: Heart size is normal. There is no pericardial effusion.Coronary artery calcifications noted . Caliber of the ascending thoracic aorta is slightly prominent measuring 4 cm. VISUALIZED UPPER ABDOMEN:No significant adrenal masses. Gallbladder surgically absent. OSSEOUS: No significant osseous lesions.. IMPRESSION: 1. Stable 4 millimeter pleural-based nodule in the lateral segment of the right middle lobe, unchange d from June 2019 as are other findings described above. There are no new significant pulmonary fi ndings nor pleural fusion. No obvious intrathoracic adenopathy evident on this non few study. 2. Diameter of the ascending thoracic aorta is prominent measuring 4 cm. Cannot assess for dissectio n without IV contrast. 3. Gallbladder surgically absent. RADIATION DOSE DELIVERED: 577.83mGy.cm Total DLP DATA REPOSITORY: All CT scans at this facility are submitted to the National Radiology Data Registry (NRDR) Dose Index Registry (DIR) with the [employer] (ACR). RADIATION OPTIMIZATION: All CT scans at this facility use at least one of these dose optimization te chniques: automated exposure control; mA and/or kV adjustment per patient size (includes targeted exa ms where dose is matched to clinical indication); or iterative reconstruction.
== END 2021-02-01 02:14 ==
PROVIDERS: PCP Physician Assistant Medical; Visit Provider Family Medicine
DX: R91.1 Solitary pulmonary nodule (principal); I77.810 Thoracic aortic ectasia
CPT/HCPCS: 71250; 76706

== ENCOUNTER 2021-02-19 17:12 | Outpatient (REF) | payer MEDICARE, OTHER, SELFPAY ==
[2021-02-19 21:29] LABS: Anion Gap 10.2 mmol/L (3-11); BUN 21 mg/dL (7-18); CO2 24.8 mmol/L (21.0-32.0); CREATININE 1.4 mg/dL (0.70-1.30); Calcium 9.1 mg/dL (8.5-10.1); Chloride 105 mmol/L (98-107); Estimated GFR 49.41 (mL/min/1.73m2); Glucose 105 mg/dL (74-106); Potassium 4.8 mmol/L (3.5-5.1); Sodium 140 mmol/L (136-145)
== END 2021-02-19 17:13 | disposition home or self-care (01) ==
LOC: NCHCN 17:12
PROVIDERS: PCP Physician Assistant Medical; Visit Provider Family Medicine
DX: I10 Essential (primary) hypertension (principal); G25.81 Restless legs syndrome
CPT/HCPCS: 80048

== ENCOUNTER 2021-06-26 19:37 | Emergency (ER) | payer MEDICARE, OTHER, SELFPAY ==
[2021-06-26 19:40] VITALS: BP 157/79; PULSE 77; RESP 18; TEMP 36.7; O2SAT 96
--- NOTE | 2021-06-26 20:06 | W.ED.GENAD ---
Discharge Plan Disposition Patient Disposition: HOME Condition: Stable Discharge Details Clinical Impression: Urticaria Primary Care Provider: Jasmin Mckeon ED Provider: Liz Buckley Home Meds and New Rx's Prescriptions: New prednisone 20 mg tablet 20 mg PO DAILY Qty: 8 RF: 0 Continued albuterol sulfate [ProAir HFA] 90 mcg/actuation HFA aerosol inhaler 2 puff IH Q6H PRNRF: 0 amlodipine 2.5 mg tablet 2.5 mg PO BID RF: 0 lisinopril 2.5 mg tablet 2.5 mg PO BID RF: 0 hydrocortisone 30 GM cream with perineal applicator 0 applic RC BID Qty: 30 RF: 3 albuterol sulfate [ProAir HFA] 8.5 GM HFA aerosol inhaler 2 puff Inhalation Q6H PRN Qty: 1 RF: 4 omeprazole 40 mg capsule,delayed release(DR/EC) 40 mg PO DAILY Qty: 30 RF: 3 magnesium oxide 500 MG capsule 500 mg PO DAILY RF: 0 Discharge Instructions Instructions: Urticaria (ED) Additional Instructions: Please follow-up with your primary care tomorrow Discontinue your lisinopril Take Benadryl 25 mg every 4 hours for symptom control for itching and hives Return earlier should you have difficulty breathing, swallowing, or with any new or progressing symptoms, please return earlier for reassessment Referrals: Jasmin Mckeon PA [Primary Care Provider] - Discharge Data Discharge Date/Time-TO BE ENTERED AT DEPARTURE: 06/26/21 20:56 Medical Decision Making At this time unclear as to why patient has developed generalized urticaria, there is nothing new that he is using and no diet changes He is on lisinopril, I will discontinue this medication very temporarily until he sees his primary care physician, he is instructed to call them tomorrow I have also placed him on prednisone for the next several days and Benadryl at home Vitals are stable aside from mild elevation of his blood pressure I did not administer anything IV at this time patient has passed to retract home, he was given Decadron for home He is given prednisone 40 mg in the emergency room and a dose of Pepcid Given very low threshold to return should he have new or worsening complaints Is discharged home speaking airway with symptoms persistent since this morning. Medical Records Medical records reviewed: Yes I reviewed the patient's medical records. HPI General Mode of arrival: ambulatory. Date/Time Provider Initiated Documentation: 06/26/21 19:38. Limitations to Documentation: no limitations. Information obtained by: patient. HPI Narrative: This very pleasant 76-year-old male with history of hypertension, emphysema, prediabetes presents with report of generalized rash which started this morning when patient awoke. He denies any new medications, soaps, detergents. He states the rash is itchy and diffuse. He has not attempted any [id number] medication. He denies any difficulty swallowing or shortness of breath. He denies pain or any additional complaints at this time. Denies any swallowing. Denies difficulty swallowing. Related Data Home Medications Medication Instructions Recorded Confirmed magnesium oxide 500 mg PO DAILY 04/23/16 06/26/21 hydrocortisone 0 applic RC BID #30 g 08/29/17 06/26/21 albuterol sulfate [ProAir HFA] 2 puff INHALATION Q6H PRN #1 09/11/17 06/26/21 inhaler albuterol sulfate 90 mcg/actuation 2 puff IH Q6H PRN 03/14/20 06/26/21 aerosol inhaler amlodipine 2.5 mg tablet 2.5 mg PO BID 03/14/20 06/26/21 lisinopril 2.5 mg tablet 2.5 mg PO BID tab 03/14/20 06/26/21 omeprazole 40 mg capsule,delayed 40 mg PO DAILY #30 cap 01/15/21 06/26/21 release prednisone 20 mg PO DAILY #8 tab 06/26/21 Previous Rx's Medication Instructions Recorded albuterol sulfate [ProAir HFA] 2 puff INHALATION Q6H PRN #1 09/11/17 inhaler omeprazole 40 mg capsule,delayed 40 mg PO DAILY #30 cap 01/15/21 release prednisone 20 mg PO DAILY #8 tab 06/26/21 Allergies Allergy/AdvReac Type Severity Reaction Status Date / Time Blood pressure meds AdvReac wiped me Uncoded 06/26/21 19:46 out General Stated Complaint: RashLesion KALI: 4 Review of Systems All systems reviewed & are unremarkable except as noted in HPI and below PFSH Medical History (Updated 06/26/21 @ 20:37 by LALO Rios) Aortic dilatation Bilateral leg edema BPH (benign prostatic hyperplasia) Colon polyp Constipation EVANS (dyspnea on exertion) Dysphagia Emphysema, unspecified External hemorrhoids Heel pain History of postoperative nausea and vomiting Hypertension Lung nodule Prediabetes Restless leg syndrome Sleep apnea Tremor Surgical History (Updated 03/29/20 @ 08:18 by Joi Braga RN) Appendectomy Cholecystectomy Hemorrhoidectomy Replacement of total knee joint RIGHT-2005 LEFT-? 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 Grandfather No problems noted. Grandfather No problems noted. Grandmother No problems noted. Grandmother No problems noted. Brother No problems noted. Daughter No problems noted. Daughter No problems noted. Social History (Updated 03/17/20 @ 10:24 by Melania Landaverde MD) Smoking/Tobacco Use Status: Never Smoking risk assessment performed?: Yes Alcohol Intake: current Alcohol Intake frequency: holidays/special occasions only Drug use: Never Substance use type: does not use Current gender identity: male Do you feel safe at home: Yes Do you feel safe in your relationship?: Yes Exam Const General: cooperative HENMT Other: Uvula midline, maintaining secretions Neck Other: No stridor Resp Effort & Inspection: normal respiratory effort Auscultation: clear to auscultation bilaterally Cardio Rate: regular rate Rhythm: regular rhythm Skin Other: . Generalized urticaria Neuro General: patient alert and patient oriented x3 Extrem Other: Generalized urticaria Course Vital Signs Vital signs: Vital Signs Temperature 36.7 C 06/26/21 19:40 Pulse 77 06/26/21 19:40 Respiratory Rate 18 06/26/21 19:40 Blood Pressure 157/79 H 06/26/21 19:40 Pulse Oximetry 96 06/26/21 19:40 Temperature 36.7 C 06/26/21 19:40 Temperature Source Temporal Artery Scan 06/26/21 19:40 Pulse 77 06/26/21 19:40 Respiratory Rate 18 06/26/21 19:40 Respiratory Effort Non-Labored 06/26/21 19:48 Blood Pressure 157/79 H 06/26/21 19:40 Blood Pressure Position Sitting 06/26/21 19:40 Pulse Oximetry 96 06/26/21 19:40 Oxygen Delivery Method Room Air 06/26/21 19:40 Oxygen Flow Rate 0 06/26/21 19:40 Pain Level 0 06/26/21 19:40
[2021-06-26] MEDS: predniSONE 20 MG TAB 40 MG PO (20:28)
[2021-06-26] MEDS: Famotidine 20 MG TAB 40 MG PO (20:28)
[2021-06-26] MEDS: diphenhydrAMINE 25 MG CAP PO (20:58)
== END 2021-06-26 20:56 | disposition home or self-care (01) ==
PROVIDERS: Emergency Provider Physician Assistant; PCP Physician Assistant Medical
DX: L50.1 Idiopathic urticaria (principal); L29.8 Other pruritus
CPT/HCPCS: 99283; J7512

== ENCOUNTER 2021-10-29 19:54 | Outpatient (REF) | payer MEDICARE, OTHER, SELFPAY ==
[2021-10-29 16:39] LABS: ALT 72 U/L (16-63); AST 34 U/L (15-37); Alkaline Phosphatase 90 U/L (46-116); Anion Gap 11.1 mmol/L (3-11); BUN 16 mg/dL (7-18); Bilirubin, Total 0.7 mg/dL (0.2-1.0); CO2 23.9 mmol/L (21.0-32.0); CREATININE 1.3 mg/dL (0.70-1.30); Calculated LDL 64 mg/dL (<100); Chloride 105 mmol/L (98-107); Cholesterol 127 mg/dL (<200); Estimated GFR 53.67 (mL/min/1.73m2); Glucose 105 mg/dL (74-106); HDL Cholesterol 34 mg/dL (40-60); Potassium 4.1 mmol/L (3.5-5.1); Sodium 140 mmol/L (136-145); Triglyceride 148 mg/dL (<150)
[2021-10-29 16:41] LABS: Hemoglobin A1C 6.2 % (<5.7)
== END 2021-10-29 19:55 | disposition home or self-care (01) ==
LOC: NCHCN 19:54
PROVIDERS: PCP Physician Assistant Medical; Visit Provider Family Medicine
DX: I10 Essential (primary) hypertension (principal); R73.03 Prediabetes; G25.81 Restless legs syndrome
CPT/HCPCS: 80053; 80061; 83036

== ENCOUNTER 2022-11-05 21:36 | Outpatient (REF) | payer MEDICARE, OTHER, SELFPAY ==
[2022-11-05 15:46] LABS: ALT 66 U/L (16-63); AST 33 U/L (15-37); Albumin 3.9 g/dL (3.4-5.0); Alkaline Phosphatase 76 U/L (46-116); Anion Gap 7.6 mmol/L (3-11); BUN 20 mg/dL (7-18); Bilirubin, Total 0.7 mg/dL (0.2-1.0); CO2 29.4 mmol/L (21.0-32.0); CREATININE 1.3 mg/dL (0.70-1.30); Calcium 9.5 mg/dL (8.5-10.1); Calculated LDL 92 mg/dL (<100); Chloride 106 mmol/L (98-107); Cholesterol 144 mg/dL (<200); Estimated GFR 56.58 (mL/min/1.73m2); Glucose 112 mg/dL (74-106); HDL Cholesterol 36 mg/dL (40-60); Potassium 4.6 mmol/L (3.5-5.1); Sodium 143 mmol/L (136-145); Total Protein 7.5 g/dL (6.4-8.2); Triglyceride 83 mg/dL (<150)
[2022-11-05 19:03] LABS: Vitamin D 25 Total 22.4 ng/mL (30-100)
== END 2022-11-05 21:37 | disposition home or self-care (01) ==
LOC: NCHCN 21:36
PROVIDERS: PCP Physician Assistant Medical; Visit Provider Family Medicine
DX: I10 Essential (primary) hypertension (principal); R73.03 Prediabetes; Z00.00 Encounter for general adult medical examination without abnormal findings
CPT/HCPCS: 80053; 80061; 82306

== ENCOUNTER 2023-01-14 08:54 | Emergency (ER) | payer MEDICARE, OTHER, SELFPAY ==
[2023-01-14 08:58] VITALS: BP 141/94; PULSE 72; RESP 20; TEMP 36.2; O2SAT 98
--- NOTE | 2023-01-14 09:03 | W.ED.GENAD ---
Discharge Plan Disposition Patient Disposition: Home Discharge Details Clinical Impression: Tick bite of left upper arm Primary Care Provider: Jasmin Mckeon ED Provider: Salty Nolasco Home Meds and New Rx's Prescriptions: New doxycycline hyclate 100 mg capsule 100 mg PO BID Qty: 10 0RF Continued albuterol sulfate [ProAir HFA] 90 mcg/actuation HFA aerosol inhaler 2 puff IH Q6H PRN amlodipine 2.5 mg tablet 2.5 mg PO BID lisinopril 2.5 mg tablet 2.5 mg PO BID hydrocortisone 30 GM cream with perineal applicator 0 applic RC BID Qty: 30 Rx Instructions: apply to anus albuterol sulfate [ProAir HFA] 8.5 GM HFA aerosol inhaler 2 puff Inhalation Q6H PRN Qty: 1 4RF Rx Instructions: Use with spacer omeprazole 40 mg capsule,delayed release(DR/EC) 40 mg PO DAILY Qty: 30 3RF magnesium oxide 500 MG capsule 500 mg PO DAILY prednisone 20 mg tablet 20 mg PO DAILY Qty: 8 0RF ferrous sulfate [iron] 325 mg (65 mg iron) tablet 325 mg PO 1XD Vitamin C 100 mg tablet 100 mg PO 1XD lisinopril 5 mg tablet 5 mg PO 2XD Patient Comments: TAKE ONE TABLET BY MOUTH TWICE A DAY Discharge Instructions Instructions: Tick Bite (ED) Additional Instructions: Please read all of the information that accompanies these instructions. You were seen in the emergency department for your tick bite. You are receiving antibiotics which you should take as directed. Please schedule an appointment with your primary care provider later this week. Please return to the emergency department if if you develop fevers or any shortness of breath. As we discussed, this medication makes you quite sensitive to the sun. Please wear sunscreen and a hat and cover up while taking this medication. Discharge Data Discharge Date/Time-TO BE ENTERED AT DEPARTURE: 01/14/23 09:33 Medical Decision Making This is an overall very well-appearing afebrile and not tachycardic 77-year-old male with left upper arm tick bite with residual tick embedded in his arm. He cannot recall when he was bit by his tick and as result we will treat for early localized Lyme disease though there is not clearly a rash consistent with erythema migrans. No shortness of breath or palpitations to suggest Lyme carditis. Nontoxic-appearing so doubt babesiosis. No fevers to suggest early disseminated Lyme disease. I counseled the patient on covering himself up on doxycycline which he will take for the next 10 days given increased photosensitivity. I advised wearing a hat and wearing sunscreen. I also advised ED return if you develop fevers or shortness of breath. Otherwise I advised outpatient PMD follow-up later this week as needed. HPI General Date/Time Provider Initiated Documentation: 01/14/23 09:03. HPI Narrative: This is a 77-year-old male arriving via private vehicle after noticing a tick embedded in his left upper arm last night at approximately 11 PM. Patient cannot recall when he was bit. He reports frequently being outside. He could not remove this tick himself. He denies any fevers chills chest pain shortness of breath. He has not had any numbness or tingling in his left hand. He is requesting that the tick be removed. He denies any injuries. He was in his usual state of health when he noticed the tick yesterday evening and denies abdominal pain dysuria and frequency. He has had no nausea nor vomiting. Related Data Home Medications Medication Instructions Recorded Confirmed magnesium oxide 500 mg capsule 500 mg PO DAILY 04/23/16 01/14/23 hydrocortisone 2.5 % topical cream 0 applic RC BID #30 grams 08/29/17 06/26/21 with perineal applicator albuterol sulfate 90 mcg/actuation 2 puff inhalation Q6H PRN ##1 09/11/17 06/26/21 aerosol inhaler (ProAir HFA) albuterol sulfate 90 mcg/actuation 2 puff inhalation Q6H PRN 03/14/20 06/26/21 aerosol inhaler (ProAir HFA) amlodipine 2.5 mg tablet 2.5 mg PO BID 03/14/20 01/14/23 lisinopril 2.5 mg tablet 2.5 mg PO BID 03/14/20 06/26/21 omeprazole 40 mg capsule,delayed 40 mg PO DAILY #30 caps 01/15/21 01/14/23 release prednisone 20 mg tablet 20 mg PO DAILY #8 tabs 06/26/21 ascorbic acid (vitamin C) 100 mg 100 mg PO 1XD 01/14/23 01/14/23 tablet (Vitamin C) doxycycline hyclate 100 mg capsule 100 mg PO BID #10 caps 01/14/23 ferrous sulfate 325 mg (65 mg 325 mg PO 1XD 01/14/23 01/14/23 iron) tablet (iron) lisinopril 5 mg tablet 5 mg PO 2XD 01/14/23 01/14/23 Previous Rx's Medication Instructions Recorded albuterol sulfate 90 mcg/actuation 2 puff inhalation Q6H PRN ##1 09/11/17 aerosol inhaler (ProAir HFA) omeprazole 40 mg capsule,delayed 40 mg PO DAILY #30 caps 01/15/21 release prednisone 20 mg tablet 20 mg PO DAILY #8 tabs 06/26/21 doxycycline hyclate 100 mg capsule 100 mg PO BID #10 caps 01/14/23 Allergies Allergy/AdvReac Type Severity Reaction Status Date / Time Blood pressure meds AdvReac wiped me Uncoded 06/26/21 19:46 out General Stated Complaint: InsectBite KALI: 4 PFSH All Active Problems (Updated 01/14/23 @ 09:15 by Salty Nolasco MD) Urticaria (Acute) Tick bite of left upper arm (Acute) External hemorrhoids (Acute) Emphysema, unspecified (Acute) EVANS (dyspnea on exertion) (Acute) Bilateral leg edema (Acute) Constipation (Acute) Prediabetes (Acute) Heel pain (Acute) Lung nodule (Acute) Medical History (Updated 01/14/23 @ 09:15 by Salty Nolasco MD) Aortic dilatation BPH (benign prostatic hyperplasia) Colon polyp Dysphagia History of postoperative nausea and vomiting Hypertension Restless leg syndrome Sleep apnea Tremor Surgical History (Updated 03/29/20 @ 08:18 by Joi Braga RN) Appendectomy Cholecystectomy Hemorrhoidectomy Replacement of total knee joint RIGHT-2004 LEFT-? Rotator Cuff Repair (07/07/13) Right S/P colonoscopy 2014- tubular adenoma Status post total knee replacement [place]10/12/13[place] [facility] [place] 2014 Family History Mother Diabetes Father Neoplasm THROAT Brother No problems noted. Grandfather No problems noted. Grandfather No problems noted. Grandmother No problems noted. Grandmother No problems noted. Brother No problems noted. Daughter No problems noted. Daughter No problems noted. Social History (Updated 03/17/20 @ 10:24 by Melania Landaverde MD) Smoking/Tobacco Use Status: Never Smoking risk assessment performed?: Yes Alcohol Intake: current Alcohol Intake frequency: holidays/special occasions only Drug use: Never Substance use type: does not use Current gender identity: male Do you feel safe at home: Yes Do you feel safe in your relationship?: Yes Exam Narrative Exam Narrative: General: Well-appearing in no acute distress speaking in complete sentences. Head: Normocephalic, atraumatic. Eye: Pupils equal, round reactive to light. Extraocular eye movements intact. No conjunctival injection. No scleral icterus. Ear, nose, mouth, throat: Grossly normal inspection. Normal voice, handling secretions normally. Neck: Trachea midline. Cardiovascular: Well-perfused distal extremities. Respiratory: Nonlabored respiration. Gastrointestinal: Nondistended abdomen. Musculoskeletal: No edema. Moving all 4 extremities spontaneously. Skin: On the posterior aspect of the patient's left upper arm there is an embedded tick with mild surrounding erythema. No erythema migrans. No crepitance. No pain out of proportion. Neurologic: Alert and appropriate, no apparent acute deficits. Psychiatric: Mood and manner are appropriate. Grooming and personal hygiene are appropriate. Course Vital Signs Vital signs: Vital Signs Temperature 36.2 C L 01/14/23 08:58 Pulse 72 01/14/23 08:58 Respiratory Rate 20 01/14/23 08:58 Blood Pressure 141/94 H 01/14/23 08:58 Pulse Oximetry 98 01/14/23 08:58 Temperature 36.2 C L 01/14/23 08:58 Temperature Source Tympanic 01/14/23 08:58 Pulse 72 01/14/23 08:58 Respiratory Rate 20 01/14/23 08:58 Blood Pressure 141/94 H 01/14/23 08:58 Blood Pressure Position Supine 01/14/23 08:58 Pulse Oximetry 98 01/14/23 08:58 Oxygen Delivery Method Room Air 01/14/23 08:58 Oxygen Flow Rate 0 01/14/23 08:58 Pain Level 0 01/14/23 08:58
[2023-01-14] MEDS: Doxycycline Hyclate 100 MG CAP PO (09:23)
== END 2023-01-14 09:33 | disposition home or self-care (01) ==
LOC: ER 10:13
PROVIDERS: Emergency Provider Emergency Medicine; PCP Physician Assistant Medical
DX: S40.862A Insect bite (nonvenomous) of left upper arm, initial encounter (principal); W57.XXXA Bitten or stung by nonvenomous insect and other nonvenomous arthropods, initial encounter
CPT/HCPCS: 99283

== ENCOUNTER 2023-10-30 15:28 | Outpatient (REF) | payer MEDICARE, OTHER, SELFPAY ==
[2023-10-30 14:48] LABS: HCT 39.9 % (40.0-50.0); HGB 13.5 g/dL (13.5-17.5); MCH 30.5 pg (27.0-33.0); MCHC 33.8 % (32.0-36.0); MCV 90 fL (80-95); MPV 11.7 fL (8.0-11.0); Platelet Count 190 10^3/uL (130-400); RBC 4.42 10^6/uL (4.36-5.78); RDW 12.5 % (11.8-14.1); RDW-SD 40.7 fL; WBC 4.58 10^3/uL (4.4-10.8)
[2023-10-30 14:58] LABS: ALT 45 U/L (16-63); AST 27 U/L (15-37); Albumin 3.7 g/dL (3.4-5.0); Alkaline Phosphatase 75 U/L (46-116); Anion Gap 9.4 mmol/L (3-11); BUN 20 mg/dL (7-18); Bilirubin, Total 0.8 mg/dL (0.2-1.0); CO2 24.6 mmol/L (21.0-32.0); CREATININE 1.3 mg/dL (0.70-1.30); Calcium 9.1 mg/dL (8.5-10.1); Chloride 107 mmol/L (98-107); Estimated GFR 56.23 (mL/min/1.73m2); Glucose 112 mg/dL (74-106); Lipase 43 U/L (16-77); Potassium 4.2 mmol/L (3.5-5.1); Sodium 141 mmol/L (136-145); Total Protein 7.1 g/dL (6.4-8.2)
[2023-10-30 15:26] LABS: Vitamin D 25 Total 21.8 ng/mL (30-100)
== END 2023-10-30 15:29 | disposition home or self-care (01) ==
LOC: NCHCN 15:28
PROVIDERS: PCP Family Medicine; Referring Provider Family Medicine; Visit Provider Family Medicine
DX: I10 Essential (primary) hypertension (principal); E55.9 Vitamin D deficiency, unspecified; R73.03 Prediabetes
CPT/HCPCS: 80053; 82306; 83690; 85027

== ENCOUNTER 2024-04-29 10:28 | Outpatient (REF) | payer MEDICARE, OTHER, SELFPAY ==
[2024-04-29 15:11] LABS: Hemoglobin A1C 6.1 % (<5.7)
== END 2024-04-29 10:29 | disposition home or self-care (01) ==
LOC: NCHCN 10:28
PROVIDERS: PCP Family Medicine; Visit Provider Family Medicine
DX: R73.03 Prediabetes (principal)
CPT/HCPCS: 83036

== ENCOUNTER 2024-06-30 09:20 | Emergency (ER) | payer MEDICARE, OTHER, SELFPAY ==
[2024-06-30 09:32] VITALS: BP 142/71; PULSE 65; RESP 18; TEMP 36.3; O2SAT 98
[2024-06-30] MEDS: Lidocaine/Epinephri/Tetracaine Topical Gel 3 ML (10:22)
--- NOTE | 2024-06-30 11:24 | ED.GENADUL_ITS ---
Discharge Plan Disposition Patient Disposition: Home Condition: Stable Discharge Details Clinical Impression: Tick bite of left flank Primary Care Provider: Dayana Neal ED Provider: Sukh Mandujano Home Meds and New Rx's Prescriptions: Continued albuterol sulfate [ProAir HFA] 90 mcg/actuation HFA aerosol inhaler 2 puff IH Q6H PRN amlodipine 2.5 mg tablet 2.5 mg PO BID lisinopril 2.5 mg tablet 2.5 mg PO BID hydrocortisone 30 GM cream with perineal applicator 0 applic RC BID Qty: 30 Rx Instructions: apply to anus albuterol sulfate [ProAir HFA] 8.5 GM HFA aerosol inhaler 2 puff Inhalation Q6H PRN Qty: 1 4RF Rx Instructions: Use with spacer omeprazole 40 mg capsule,delayed release(DR/EC) 40 mg PO DAILY Qty: 30 3RF magnesium oxide 500 MG capsule 500 mg PO DAILY ferrous sulfate [iron] 325 mg (65 mg iron) tablet 325 mg PO 1XD Vitamin C 100 mg tablet 100 mg PO 1XD Discontinued lisinopril 5 mg tablet 5 mg PO 2XD Patient Comments: TAKE ONE TABLET BY MOUTH TWICE A DAY Discharge Instructions Instructions: Insect bites and stings Additional Instructions: You received a prophylactic dose of doxycycline 200 mg today to prevent Lyme disease. Please apply [id number] topical antibiotic like Neosporin to tick bite. Apply three times a day for the next 1 week. Please contact your primary care physician to arrange follow-up. Return to the ER immediately for any worsening or new concerning symptoms. Referrals: Dayana Neal [Primary Care Provider] - Discharge Data Discharge Date/Time-TO BE ENTERED AT DEPARTURE: 06/30/24 11:34 HPI General Mode of arrival: ambulatory . Date/Time Provider Initiated Documentation: 06/30/24 10:03 . Limitations to Documentation: no limitations . Information obtained by: patient . HPI Narrative: 79-year-old male presents with chief complaint of tick bite. Patient notes he found a tick on his left mid back last night. His removed the tick but he is concerned that there are still tick parts retained in the wound. Unsure as to how long tick was attached. Tick was not engorged. He has no associated fever or rash. Related Data Home Medications ?Medication ?Instructions ?Recorded ?Confirmed magnesium oxide 500 mg capsule 500 mg PO DAILY 04/23/16 06/30/24 hydrocortisone 2.5 % topical cream 0 applic RC BID #30 grams 08/29/17 06/30/24 with perineal applicator albuterol sulfate 90 mcg/actuation 2 puff inhalation Q6H PRN ##1 09/11/17 06/30/24 aerosol inhaler (ProAir HFA) albuterol sulfate 90 mcg/actuation 2 puff inhalation Q6H PRN 03/14/20 06/30/24 aerosol inhaler (ProAir HFA) amlodipine 2.5 mg tablet 2.5 mg PO BID 03/14/20 06/30/24 lisinopril 2.5 mg tablet 2.5 mg PO BID 03/14/20 06/30/24 omeprazole 40 mg capsule,delayed 40 mg PO DAILY #30 caps 01/15/21 06/30/24 release ascorbic acid (vitamin C) 100 mg 100 mg PO 1XD 01/14/23 06/30/24 tablet (Vitamin C) ferrous sulfate 325 mg (65 mg 325 mg PO 1XD 01/14/23 06/30/24 iron) tablet (iron) Previous Rx's ?Medication ?Instructions ?Recorded albuterol sulfate 90 mcg/actuation 2 puff inhalation Q6H PRN ##1 09/11/17 aerosol inhaler (ProAir HFA) omeprazole 40 mg capsule,delayed 40 mg PO DAILY #30 caps 01/15/21 release Allergies Allergy/AdvReac Type Severity Reaction Status Date / Time Blood pressure meds AdvReac wiped me Uncoded 06/30/24 09:33 out General Stated Complaint: InsectBite KALI: 4 Review of Systems Constitutional Constitutional: Reports as per HPI Integumentary/Breasts Skin/Breast: Reports as per HPI Exam Skin Wounds: wounds noted (Tick bite left mid back, no erythema or induration, retained mouth part) Course Vital Signs Vital signs: Vital Signs Temperature 36.3 C L 06/30/24 09:32 Pulse 65 06/30/24 09:32 Respiratory Rate 18 06/30/24 09:32 Blood Pressure 142/71 H 06/30/24 09:32 Pulse Oximetry 98 06/30/24 09:32 Temperature 36.3 C L 06/30/24 09:32 Temperature Source Temporal Artery Scan 06/30/24 09:32 Pulse 65 06/30/24 09:32 Respiratory Rate 18 06/30/24 09:32 Respiratory Effort Normal, Non-Labored 06/30/24 09:36 Blood Pressure 142/71 H 06/30/24 09:32 Blood Pressure Position Sitting 06/30/24 09:32 Pulse Oximetry 98 06/30/24 09:32 Oxygen Delivery Method Room Air 06/30/24 09:32 Oxygen Flow Rate 0 06/30/24 09:32 Pain Level 0 06/30/24 09:32 Medical Decision Making 79-year-old male here with tick bite and retained mouthparts in the wound. Wound was anesthetized with let. I was able to remove some of the mouthparts with tweezers. Small Mels part unable to be removed. I recommended he continue to monitor the wound. Given unknown time of attachment and type of tick, will treat with empiric dose of doxycycline 200 mg x 1. Usual and customary discharge instructions were reviewed with the patient. Quality:SDOH Health Related Social Needs: No Data to Display PFSH All Active Problems (Updated 06/30/24 @ 11:25 by Sukh Mandujano MD) Tick bite of left flank (Acute) Urticaria (Acute) External hemorrhoids (Acute) Emphysema, unspecified (Acute) EVANS (dyspnea on exertion) (Acute) Bilateral leg edema (Acute) Constipation (Acute) Prediabetes (Acute) Heel pain (Acute) Lung nodule (Acute) Medical History (Updated 06/30/24 @ 11:25 by Sukh Mandujano MD) History of postoperative nausea and vomiting Aortic dilatation Dysphagia Colon polyp BPH (benign prostatic hyperplasia) Sleep apnea Tremor Restless leg syndrome Hypertension Surgical History (Updated 03/29/20 @ 08:18 by Joi Braga RN) S/P colonoscopy 2014- tubular adenoma Replacement of total knee joint RIGHT-2004 LEFT-? Transurethral prostatectomy 2015 Rotator Cuff Repair (07/07/13) Right Hemorrhoidectomy Cholecystectomy Appendectomy Status post total knee replacement (10/12/13) [place] [facility] [place] Family History Mother Diabetes Father Neoplasm THROAT Brother No problems noted. Grandfather No problems noted. Grandfather No problems noted. Grandmother No problems noted. Grandmother No problems noted. Brother No problems noted. Daughter No problems noted. Daughter No problems noted. Social History (Updated 03/17/20 @ 10:24 by Melania Landaverde MD) Smoking/Tobacco Use Status: Never Smoking risk assessment performed?: Yes Alcohol Intake: current Alcohol Intake frequency: holidays/special occasions on ly Drug use: Never Substance use type: does not use Current gender identity: male Do you feel safe at home: Yes Do you feel safe in your relationship?: Yes
[2024-06-30] MEDS: Doxycycline Hyclate 100 MG CAP 200 MG PO (11:31)
== END 2024-06-30 11:34 | disposition home or self-care (01) ==
PROVIDERS: Emergency Provider Student in an Organized Health Care Education/Training Program; PCP Family Medicine
DX: S30.861A Insect bite (nonvenomous) of abdominal wall, initial encounter (principal); W57.XXXA Bitten or stung by nonvenomous insect and other nonvenomous arthropods, initial encounter
CPT/HCPCS: 99283

== ENCOUNTER 2024-11-02 09:20 | Outpatient (REF) | payer MEDICARE, OTHER, SELFPAY ==
[2024-11-02 17:20] LABS: Hemoglobin A1C 6.1 % (<5.7)
== END 2024-11-02 09:21 | disposition home or self-care (01) ==
LOC: NCHCN 09:20
PROVIDERS: PCP Family Medicine; Visit Provider Family Medicine
DX: R73.03 Prediabetes (principal); Z00.00 Encounter for general adult medical examination without abnormal findings
CPT/HCPCS: 82306; 83036

== ENCOUNTER 2024-11-12 16:00 | Outpatient (REF) | payer MEDICARE, OTHER, SELFPAY ==
[2024-11-12 15:23] LABS: COMMENT (LAB VIEW ONLY) 23.12 mg/dL; Microalb ug/mg Crea 45.8 ug/mg Cr
== END 2024-11-12 16:01 | disposition home or self-care (01) ==
LOC: NCHCN 16:00
PROVIDERS: PCP Family Medicine; Visit Provider Family Medicine
DX: I10 Essential (primary) hypertension (principal)
CPT/HCPCS: 82043; 82570

== ENCOUNTER → 2025-07-14 09:16 | Outpatient (BNVA) | payer MEDICARE, OTHER, SELFPAY | PROVIDERS: PCP Family Medicine; Referring Provider Family Medicine; Visit Provider Physical Therapy Assistant | DX: Z12.11 Encounter for screening for malignant neoplasm of colon (principal); Z86.0101 Personal history of adenomatous and serrated colon polyps; Z86.0102 Personal history of hyperplastic colon polyps | CPT/HCPCS: S0285 ==

== ENCOUNTER 2025-07-28 07:29 | Day surgery (SDC) | payer MEDICARE, OTHER, SELFPAY ==
--- NOTE | 2025-07-28 05:45 | W.ANESPRE ---
General Info Date of Service Date Performed: 07/28/25 Height: 5 ft 10 in Weight: 118.388 kg Body Mass Index (BMI): 37.4 Surgical Procedure: Operation Date: 07/28/25 09:05 Proposed Procedure Side Surgeon p Colonoscopy Nova Arzate MD Meds Allergies and Home Medications Allergies Allergy/AdvReac Type Severity Reaction Status Date / Time Blood pressure meds AdvReac wiped me Uncoded 07/28/25 07:42 out Home Medication Medication Instructions Recorded magnesium oxide 500 mg capsule 500 mg PO DAILY 04/23/16 hydrocortisone 2.5 % topical cream 0 applic RC BID #30 grams 08/29/17 with perineal applicator albuterol sulfate 90 mcg/actuation 2 puff inhalation Q6H PRN ##1 09/11/17 aerosol inhaler (ProAir HFA) albuterol sulfate 90 mcg/actuation 2 puff inhalation Q6H PRN 03/14/20 aerosol inhaler (ProAir HFA) amlodipine 2.5 mg tablet 2.5 mg PO BID 03/14/20 omeprazole 40 mg capsule,delayed 40 mg PO DAILY #30 caps 01/15/21 release ascorbic acid (vitamin C) 100 mg 100 mg PO 1XD 01/14/23 tablet (Vitamin C) ferrous sulfate 325 mg (65 mg 325 mg PO 1XD 01/14/23 iron) tablet (iron) lisinopril 2.5 mg tablet 10 mg PO BID 07/08/25 bisacodyl 5 mg tablet,delayed 5 mg PO ONCE Colonoscopy Bowel 07/14/25 release Prep #4 tabs polyethylene glycol 3350 17 238 g PO ONCE #238 grams 07/14/25 gram/dose oral powder Current Visit Medications: Current Medications Generic Name Dose Route Start Last Admin Trade Name Freq PRN Reason Stop Dose Admin Ringer's Solution 1,000 mls @ 80 mls/hr 07/28/25 06:00 IV 07/28/25 23:59 INFUSION REJI IV Miscellaneous Supplies 1 each 07/28/25 06:00 Iv Access IV 07/28/25 23:59 DIRECTED REJI Sodium Biphosphate/Sodium Phosphate 133 ml 07/28/25 06:00 Na Phosphate Enema-Adult 133 Ml Btl VA 07/28/25 23:59 DIRECTED PRN Sodium Chloride 0 ml 07/28/25 06:00 Normal Saline Flush 10 Ml Syr IV 07/28/25 23:59 PRN PRN Sodium Chloride 0 ml 07/28/25 06:00 Normal Saline 10 Ml Vial IJ 07/28/25 23:59 DIRECTED PRN Sterile Water 0 ml 07/28/25 06:00 Water,Injection,Sterile 10 Ml Vial IJ 07/28/25 23:59 DIRECTED PRN PFSH Active Problems Active Problems: Problem Status Onset Code Urticaria Acute L50.9 External hemorrhoids Acute K64.4 Emphysema, unspecified Acute J43.9 EVANS (dyspnea on exertion) Acute R06.00 Bilateral leg edema Acute R60.0 Constipation Acute K59.00 Prediabetes Acute R73.03 Heel pain Acute M79.673 Lung nodule Acute R91.1 Medical History Medical History Dyspnea Obstructive sleep apnea syndrome Erectile dysfunction Iron deficiency anemia History of postoperative nausea and vomiting Aortic dilatation Dysphagia Colon polyp BPH (benign prostatic hyperplasia) Sleep apnea Tremor Restless leg syndrome Hypertension Surgical History Surgical History S/P colonoscopy 2015- tubular adenoma Replacement of total knee joint RIGHT-2005 LEFT-? Transurethral prostatectomy 2015 Rotator Cuff Repair (07/07/13) Right Hemorrhoidectomy Cholecystectomy Appendectomy Status post total knee replacement (10/12/13) Done at [facility] [place] Tobacco Smoking/Tobacco Use Status: Never Alcohol Alcohol Intake: former Substance Use Substance use: Never Substance use type: does not use Imaging and Studies Imaging and Studies Study information below may be from another EMR and interpreted by another provider. Please see original notes in EMR for more complete details. Stress Test Summary: 05/09/16: Stress results: [id number] The rate-pressure product for the peak heart rate and blood pressure was 04428tq Hg/min. Stress ECG: TREADMILL STRESS TEST ENDED IN 5 MINUTES AND 10 SECOND DUE TO PATIENT FATIGUE. MAX HEART RATE: 138 PERCENT OF TARGET: 92% HYPERTENSIVE BLOOD PRESSURE REPSONSE WITH NORMAL HEART RATE RESPONSE. ECTOPY: RARE PVC NOTED. APPROXIMATE METS ACHIEVED: 7.05 ANGINA: MID STERNAL CHEST PRESSURE REPORTED BY PATIENT AT 4 MINUTES OF EXERCISE AND RESOLVED BY [address] RECOVERY. UPS[address]OP[address] DEPRESSION V4-V6. FUNCTIONAL CAPACITY: MILDLY DIMINISHED. Echocardiogram Summary: 07/01/18 STUDY CONCLUSIONS* Summary: 1. Left ventricle: The cavity size was normal. Wall thickness was increased in a pattern of mild LVH. Systolic function was hyperdynamic. The estimated ejection fraction was 65-70%. There was very mild dynamic obstruction at rest in the outflow tract, withpeak gradient of 7.8mm Hg; no change with Valsalva. Wall motion was normal; there were no regional wall motion abnormalities. 2. Aortic valve: Trileaflet; normal thickness leaflets. 3. Ascending aorta: The ascending aorta was mildly to moderately dilated. 4. Aorta: Ascending aortic diameter: 4.1cm (S). 5. Right ventricle: The cavity size was normal. Wall thickness was normal. Systolic function was normal. Pulmonary Function Summary: 09/10/17 Pulmonary Function Test PATIENT NAME: RAYMOND EWING UNIT #: [id number] ADMITTING PROVIDER: MARIELA BURGESS MD PRIMARY CARE PROVIDER: MANINDER GERONIMO MD DATE OF ADMIT: 09/03/17 : 1945 INTERPRETATION SPIROMETRY: Spirometry shows mild obstructive airways disease with no significant bronchodilator response. LUNG VOLUMES: Lung volumes show no evidence of restriction DIFFUSION CAPACITY: Mildly reduced even when corrected to alveolar volume. AIRWAY RESISTANCE: Normal. IMPRESSION: Mild obstructive airways disease with no significant bronchodilator response. This is associated with mild diffusion defect. Anesthesia Assessment and Plan Anesthesia History Personal History: Other Family History: No Family History of Anesthesia Complications Exercise Tolerance Exercise Tolerance: Metabolic Equivalents<4 Cardiac & Pulmonary Exam Cardiac Exam: Heart Murmur Present Pulmonary Exam: Clear Bilateral Breath Sounds Implantable Cardiac Device Does patient have a Pacemaker or an ICD?: No Airway Exam Known Difficult Airway: No Mallampati Class: 2 Mouth Opening: Normal (> 3cm) Thyromental Distance: Greater than 3 cm Neck Range of Motion: Full ROM Neck Circumference: Normal Teeth Condition: Generalized Poor Dentition ASA Classification ASA Score: ASA 3 Emergency Case?: No NPO Status NPO Status: NPO Clears >2 hours, Solids >8 hours Anesthesia Plan Resuscitation Status: Full Code Anesthesia Technique: MAC Anesthesia Airway Planned: Natural Airway Monitors Used: Standard Monitors
[2025-07-28 07:54] VITALS: BP 134/78; PULSE 67; RESP 18; TEMP 36.9; O2SAT 98
[2025-07-28] MEDS: Lactated Ringers 1,000 ML 80 ML IV (08:05)
[2025-07-28 08:50] VITALS: BMI 37.4
--- NOTE | 2025-07-28 09:23 | BOWEL_PTH ---
PATIENT: Guy Caro LOC: [facility] U#:[id number] AGE/SX: 80/M ROOM: RE07/28/[address]: Nova Arzate MD : 1945 BED: DIS: 07/28/2025 SPEC #: [id number] RECD: 07/28/25 11:07 STATUS: GRACIA RE #: [id number] LUCÍA: 07/28/25 09:[address]: Nova Arzate DEPT: Surgical Specimen RECD BY: Liz Ward ENTERED: 07/28/25 11:09 SP TYPE: Bowel OTHR DR: Dayana Neal Tissues: 1 - BIOPSY BOWEL 2 - BIOPSY BOWEL 3 - BIOPSY BOWEL Procedures: GROSS AND MICRO LEVEL 4 Comments: [id number]
--- NOTE | 2025-07-28 09:39 | W.COLOREPORT ---
Date of service: 07/28/25 Time of Service: 09:39 Colonoscopy Report Date of procedure: 07/28/25 Pre-op diagnosis general: History of colon polyps Post-op diagnosis procedure note: same (1. Multiple transverse colon polyps. 2. Sigmoid polyp. 3. rectum polyp) Procedure: Colonoscopy with cold forcep and hot snare polypectomy Surgeon: Nova Arzate Anesthesia Type: General:No Airway Estimated blood loss (mL): 3 Pathology: other (1. Multiple transverse colon polyps. 2. Sigmoid polyp. 3. rectum polyp) Complications: None Prep: Miralax/Dulcolax (Good/excellent) Procedure Description: Informed consent was obtained and the patient was taken to the procedure area. The patient was placed in left lateral decubitus position on the procedure table. Timeout was performed. Anesthesia was induced. A lubricated colonoscope was inserted through the anus and passed to the cecum. The cecum was identified by the ileocecal valve and the appendiceal orifice. The scope was then slowly withdrawn and the colonic and rectal mucosa examined. Proximal transverse colon with two polyps. One was sessile 10mm excised with hot snare and cold forceps to pick the base. The other was sessile 3mm polyp excised with cold forcep. Removal and retrieval were complete. Retrieval of larger polyp was with suction trap. Distal sigmoid polyp sessile 6mm excised with cold forceps. Removal and retrieval complete. Rectum sessile 4mm polyp excised with cold forcep. Removal and retrieval complete. No diverticulosis was seen. The scope was retroflexed in the anorectal junction examined. Uncomplicated internal hemorrhoids present. Assessment and plan: History of serrated adenoma and tubular adenoma transverse colon polyps (2) sigmoid polyp rectum polyp Timing of next colonoscopy will be 3-5 years pending path of excised polyps. Will notify patient in writing of next due date when pathology available. Normal colonoscopy. Next screening colonoscopy will be due in 10 years.
[2025-07-28 09:43] VITALS: BP 120/84; PULSE 64; RESP 18; TEMP 36.1; O2SAT 96
--- NOTE | 2025-07-28 09:44 | W.PM.DSUDISC ---
Date of service: 07/28/25 Discharge Plan Disposition Patient Disposition: Home Condition: Stable Discharge Details Reason For Visit: Colonoscopy Attending Provider: Nova Arzate Primary Care Provider: Dayana Neal Home Meds and New Rx's Prescriptions: Continued albuterol sulfate [ProAir HFA] 90 mcg/actuation HFA aerosol inhaler 2 puff IH Q6H PRN amlodipine 2.5 mg tablet 2.5 mg PO BID Patient Comments: pt reports he is taking this once daily, can't remember the reason why it changed hydrocortisone 30 GM cream with perineal applicator 0 applic RC BID Qty: 30 Rx Instructions: apply to anus albuterol sulfate [ProAir HFA] 8.5 GM HFA aerosol inhaler 2 puff Inhalation Q6H PRN Qty: 1 4RF Rx Instructions: Use with spacer omeprazole 40 mg capsule,delayed release(DR/EC) 40 mg PO DAILY Qty: 30 3RF lisinopril 2.5 mg tablet 10 mg PO BID magnesium oxide 500 MG capsule 500 mg PO DAILY ferrous sulfate [iron] 325 mg (65 mg iron) tablet 325 mg PO 1XD Vitamin C 100 mg tablet 100 mg PO 1XD Discontinued bisacodyl 5 mg tablet,delayed release (DR/EC) 5 mg PO ONCE Qty: 4 0RF Rx Instructions: Per Colonoscopy bowel prep instructions polyethylene glycol 3350 17 gram/dose powder 238 g PO ONCE Qty: 238 0RF Rx Instructions: For Colonoscopy bowel prep, as directed by office Discharge Instructions Additional Instructions: History of serrated adenoma and tubular adenoma transverse colon polyps (2) sigmoid polyp rectum polyp Timing of next colonoscopy will be 3-5 years depending on the biopsy results of the polyps I saw and removed today. I suspect you will be due again in 3 years, but I will confirm by letter by mail when I know the results. Your polyps today were not cancer. All polyps seen were removed completely. Excellent prep. Stand Alone Forms: [facility]ierille Kingsley ([facility]), Portal Information Activity:: Activity as Tolerated Diet:: As Tolerated Discharge Orders Discharge Orders: Discharge Order (Routine); Ordered 07/28/25 Ordered By: Nova Arzate DS: Diagnosis Discharge Diagnosis (1) Polyp of transverse colon: Status: Acute (2) Polyp of sigmoid colon: Status: Acute (3) Polyp of rectum: Status: Acute (4) Encounter for colonoscopy due to history of colonic polyp: Status: Acute
--- NOTE | 2025-07-28 10:11 | W.ANESPOSTOP ---
Postoperative Evaluation Date, Time and Location Date Performed: 07/28/25 Time Performed: 09:43 Patient Location: [facility] Vital Signs Most Recent Imported Vital Signs: Most Recent Vital Signs Temp Pulse Resp BP Pulse Ox 36.1 C L 64 18 120/84 96 07/28/25 09:43 07/28/25 09:43 07/28/25 09:43 07/28/25 09:43 07/28/25 09:43 Pain Score Most Recent Pain Score: Most Recent Pain Score Pain Level 0 07/28/25 09:43 Assessment Mental Status: Awake (Alert & Oriented to Patient Baseline) Airway and Respiratory Function: Patent airway with normal (patient baseline) respiratory exam Cardiovascular Function: Hemodynamically Stable Hydration Status: Adequately Hydrated Nausea & Vomiting: No Nausea or Vomiting Pain: Pt. Denies Any Pain Peripheral Nerve Block: Patient did not receive a nerve block
[2025-07-28 10:20] VITALS: BP 139/81; PULSE 60; RESP 16; TEMP 36.3; O2SAT 98
== END 2025-07-28 10:55 | disposition home or self-care (01) ==
PROVIDERS: PCP Family Medicine; Visit Provider Surgery
PROC: 0DJD8ZZ Inspection of Lower Intestinal Tract, Via Natural or Artificial Opening Endoscopic (ICD-10-PCS; CPT 45378; principal; 2025-07-28 09:00)
DX: Z12.11 Encounter for screening for malignant neoplasm of colon (principal); D12.3 Benign neoplasm of transverse colon; D12.5 Benign neoplasm of sigmoid colon; K62.1 Rectal polyp
CPT/HCPCS: 45385; 45380; 88305; J2003; J2704